=== PATIENT | male | born 1965 | race Caucasian/White ===

== ENCOUNTER 2018-05-08 07:13 | Day surgery (SDC) | payer MEDICARE ==
[2018-05-08] VITALS (14 sets, daily range): BP systolic 137–168; BP diastolic 70–88; PULSE 72–83; RESP 10–27; Ht 162.6 cm; Wt 59.5 kg
[~2018-05-08] VITALS: Ht 162.6 cm; Wt 59.5 kg
[~2018-05-08 07:13] MED LIST: INSU100C SQ; INSU100V23 SQ
--- NOTE | 2018-05-08 08:09 | HPN ---
Date/Time of Note Date/Time of Note DATE: 05/08/18 TIME: 08:09 Interval H&P Admission Note Pt. seen H&P reviewed: No system changes TRUMAN SCHAFER MD May 08, 2018 08:09
[2018-05-08] MEDS ORDERED: FURO40TA4 PO (09:14)
[2018-05-08] MEDS ORDERED: ASPI-903 PO (09:14)
[2018-05-08] MEDS ORDERED: INSU100I12 SQ (09:21)
[2018-05-08] MEDS ORDERED: CLOP75TA27 PO (09:21)
[2018-05-08] MEDS ORDERED: LOSA50TA14 PO (09:21)
[2018-05-08] MEDS ORDERED: ISOS30TA67 ORAL (09:21)
[2018-05-08] MEDS ORDERED: LANT3I SC (09:21)
[2018-05-08] MEDS ORDERED: HYDR-3672 PO (09:23)
--- NOTE | 2018-05-08 09:44 | PREAC ---
Date/Time of Note Date/Time of Note DATE: 05/08/18 TIME: 09:41 Anesthesia Eval and Record Evaluation Time Pre-Procedure Interview DATE: 05/08/18 TIME: 09:41 Age 52 Sex male NPO: 8 hrs Preoperative diagnosis esrd Planned procedure right av fistula transposition Past Medical History Past Medical History: Includes Cardio: HTN, Dyslipidemia, CAD Endo: Diabetes Pulm: Other (left lung resection) Heme: Anemia Surgery & Anesthesia Issues No known issue Meds Anticoagulation: No Beta Tootie within 24 hr: Yes Reported Medications Hydralazine Hcl* (Hydralazine Hcl*) 50 Mg Tab, 100 MG PO TID, #180 TAB 05/08/18 Isosorbide Mononitrate* (Isosorbide Mononitrate*) 30 Mg Tab.er.24h, 1 TAB ORAL DAILY 05/08/18 Clopidogrel Bisulfate (Clopidogrel) 75 Mg Tablet, 75 MG PO DAILY, #30 TAB 05/08/18 Insulin Lispro (Humalog Kwikpen U-100) 100 Unit/1 Ml Insuln.pen, 10 UNIT SQ TIDM A, EA 05/08/18 Insulin Glargine* (Lantus*) 100 Unit/Ml Soln, 8 UNIT SC QHS, #1 VIAL 05/08/18 Losartan Potassium* (Losartan Potassium*) 50 Mg Tablet, 50 MG PO TID, TAB 05/08/18 Aspirin* (Aspirin* Chew) 81 Mg Tab.chew, 81 MG PO DAILY, TAB.CHEW 05/08/18 Furosemide* (Furosemide*) 40 Mg Tablet, 40 MG PO DAILY, TAB 05/08/18 Discontinued Reported Medications Insulin Regular, Human* (Novolin R*) 100 U/Ml Vial, 20 UNITS SQ QAM 09/05/11 Insulin Lispro (Humalog) 100 U/Ml Cartridge, 20 UNITS SQ AM, 0 Refills 04/02/10 Meds reviewed: Yes Allergies Coded Allergies: No Known Drug Allergies (Verified Allergy, Mild, 05/08/18) Allergies Reviewed: Yes Labs/Studies Labs Reviewed: Reviewed by anesthesiologist Result Diagram: 05/08/18 0810 05/08/18 0810 Laboratory Tests 05/08/18 08:10 test: N/A Studies: ECG, CXR Pre-procedure Exam Last vitals Vital Signs Date Temp Pulse Resp B/P (MAP) Pulse Ox O2 O2 Flow FiO2 Time Delivery Rate 05/08/18 96.7 78 16 159/77 99 Room Air 08:31 (104) Airway: Adequate mouth opening, Adequate thyromental dist Mallampati: Mallampati I Teeth: Normal Lung: Normal Heart: Normal ASA Physical Status ASA physical status: 3 Emergency: None Planned Anesthetic General/MAC: LMA Planned Pain Management Parenteral pain med Pre-operative Attestations Prior to commencing anesthesia and surgery, the patient was re-evaluated, there was verification of: *The patient's identity *The results of appropriate recent lab work and preoperative vital signs *The above evaluation not changing prior to induction *Anesthetic plan, risk benefits, alternative and complications discussed with patient/family; questions answered; patient/family understands, accepts and wishes to proceed. LEATHA GERARDO May 08, 2018 09:44
[2018-05-08] MEDS ORDERED: LIDOCAINE 1% (MPF) 30 ML INJ ONE (09:46)
[2018-05-08] MEDS ORDERED: HEPARIN 1000 UNITS/ML 10 ML INJ ONE (09:46)
[2018-05-08] MEDS ORDERED: THROMBIN 5000 UNIT VIAL ONE (09:46)
[2018-05-08] MEDS ORDERED: HEPARIN 1000 UNITS/ML 10 ML INJ IRR ONE (09:50)
[2018-05-08] MEDS ORDERED: PROPOFOL 20 ML ONE (10:02)
[2018-05-08] MEDS ORDERED: FENTAnyl 50 MCG/ML VIAL ONE (10:02)
[2018-05-08] MEDS ORDERED: SEVOFLURANE 15 MIN ONE (10:10)
[2018-05-08] MEDS ORDERED: LIDOCAINE 2% (SDV) 5 ML INJ ONE (11:21)
[2018-05-08] MEDS ORDERED: CEFAZOLIN 1 GM INJ ONE (11:21)
--- NOTE | 2018-05-08 11:27 | PAC ---
Date/Time of Note Date/Time of Note DATE: 05/08/18 TIME: 11:27 Post-Anesthesia Notes Post-Anesthesia Note Last documented vital signs Vital Signs Date Temp Pulse Resp B/P (MAP) Pulse Ox O2 O2 Flow FiO2 Time Delivery Rate 05/08/18 96.7 78 16 159/77 99 Room Air 1127 (104) Activity: WNL Respiratory function: WNL Cardiovascular function: WNL Mental status: Baseline Pain reasonably controlled: Yes Hydration appropriate: Yes Nausea/Vomiting absent: Yes LEATHA GERARDO May 08, 2018 11:27
[2018-05-08] MEDS ORDERED: HYDROmorphONE 1 MG/5 ML IV SYRINGE IV PRN ×3 (11:30)
[2018-05-08] MEDS ORDERED: LABETALOL HCL 20MG INJ IV PRN (11:30)
[2018-05-08] MEDS ORDERED: FENTAnyl 50 MCG/ML VIAL IV PRN ×3 (11:30)
[2018-05-08] MEDS ORDERED: OXYCODONE/ACETAMINOPHEN (5/325) TAB PO PRN (11:30)
[2018-05-08] MEDS ORDERED: hydrALAzine 20 MG INJ IV PRN (11:30)
[2018-05-08] MEDS ORDERED: ONDANSETRON 4 MG INJ IV PRN (11:30)
[2018-05-08] MEDS ORDERED: KETOROLAC 30 MG INJ IV PRN (11:30)
[2018-05-08] MEDS ORDERED: METOCLOPRAMIDE 10 MG INJ IV PRN (11:30)
[2018-05-08] MEDS ORDERED: DIPHENHYDRAMINE 50 MG INJ IV PRN (11:30)
[2018-05-08] MEDS ORDERED: MEPERIDINE 25 MG INJ IV PRN (11:30)
[2018-05-08] MEDS ORDERED: EPHEDrine SULFATE 50 MG/5 ML SYG IV PRN (11:30)
[2018-05-08] MEDS ORDERED: ALBUTEROL 0.083% (NEB) 2.5 MG/3 ML AMP HHN PRN (11:30)
--- NOTE | 2018-05-08 11:31 | SIPON ---
Date/Time of Note Date/Time of Note DATE: 05/08/18 TIME: 11:29 Operative Report Preoperative Diagnosis ESRD Postoperative Diagnosis same Operation/Procedure Performed R arm basilic vein transposition, 2nd stage Surgeon see signature line rehabilitation assistant none Anesthesia: general Estimated blood loss: 10 - 50 ml's Transfusion Required none Specimen none Grafts/Implants none Complications none TRUMAN SCHAFER MD May 08, 2018 11:31
[2018-05-08] MEDS: OXYCODONE/ACETAMINOPHEN (5/325) TAB PO PRN ×3 (12:18→13:40)
--- NOTE | 2018-05-08 13:37 | OPR ---
DATE OF OPERATION: 05/08/2018 PREOPERATIVE DIAGNOSIS: End-stage renal disease. POSTOPERATIVE DIAGNOSIS: End-stage renal disease. PROCEDURE PERFORMED: Right arm basilic vein transposition second stage. SURGEON: Truman Moura MD ANESTHESIA: LMA anesthesia. ESTIMATED BLOOD LOSS: 50 mL. COMPLICATIONS: There are no intraprocedural complications. INDICATIONS: A 52-year-old diabetic hypertensive man with end-stage renal disease, has been on dialy sis via PermCath. He has a right arm first stage brachiobasilic AV fistula. I brought him in today to superficialize the vein in the upper arm so it can be accessed. The vein has a good thrill and it is well developed. DESCRIPTION OF PROCEDURE: Patient was brought to the operating room and placed on the table in supin e position. After induction of general endotracheal anesthesia, the right arm was prepped and draped in the usual sterile fashion. I had already marked the basilic vein from the elbow to the axilla, m hair 2 incisions over the basilic vein in the upper arm beginning at the elbow and extending to the ax illa. I dissected out the basilic vein from the elbow to the axilla and ligated all the side branche s with 2-0 and 3-0 silk ties and divided them and skeletonizing the vein. Once it was completely ske letonized, I then clamped the fistula just above the arterial anastomosis at the elbow. I then trans ected the vein obliquely about 3 cm higher. I then tunneled the superficial bleeding veins going out over the biceps using a long DeBakey aortic clamp. I then reanastomosed 2 ends of the vein using 6- 0 Prolene suture in a running standard vascular surgical fashion. I removed the clamps. There was a good thrill. There was good hemostasis. I closed the skin incisions in 2 layers using an inner lay er of 3-0 Vicryl and an outer layer of 4-0 Monocryl subcuticular suture. Sterile dressing was applie d. The patient was then transferred to recovery room in stable condition. He tolerated the procedur e well without any complications. Dictated By: TRUMAN IVEY/VALERY Conf#: [id number] DID#: [id number] CC: KATELIN WALL DO;*EndCC*
--- NOTE | 2018-05-08 14:23 | RADRPT ---
Vent Rate: 78 bpm RR Interval: 0 msec UT Interval: 114 msec QRS Duration: 78 msec QT Interval: 398 msec QTC Interval: 453 msec P-R-T [place]: 31 - 37 - 150 degrees Normal sinus rhythm Possible Left atrial enlargement Lateral infarct , age undetermined Abnormal ECG Electronically Signed By: Galileo Fritz
== END 2018-05-08 14:00 | disposition home or self-care (01) ==
LOC: SDS 07:13
PROVIDERS: ATTEND Surgery Vascular Surgery
DX: I12.0 Hypertensive chronic kidney disease with stage 5 chronic kidney disease or end stage renal disease (principal); N18.6 End stage renal disease; E11.9 Type 2 diabetes mellitus without complications; I25.10 Atherosclerotic heart disease of native coronary artery without angina pectoris
CPT/HCPCS: 36819; 71045; 80053; 82962; 85025; 85610; 85730; 93005; J0360; J0690; J1170; J1644; J2405; J3010